=== PATIENT | female | born 1940 | race American Indian/Alaskan Native ===

== ENCOUNTER 2017-08-17 10:50 | Outpatient (CLI) | payer MEDICARE ==
--- NOTE | 2017-08-17 12:14 | Mammography Report ---
Screening mammogram: Routine views demonstrates asymmetric decrease in size of the left breast with prior surgical history. The fibroglandular pattern is heterogeneously dense and generally symmetric distribution. Benign-appearing bilateral vascular calcifications are present. No focal masses no architectural distortion. Compared to prior examination 2012 increased vascular calcification with no other significant change. CAD views. Impression: Relatively stable examination with no suspicious findings. Recommendation: Annual mammogram followup. BI-RADS CATEGORY: 1 = Negative ACR BI-RADS MAMMOGRAPHIC CODES: 0 = Needs additional imaging evaluation; 1 = Negative; 2 = Benign; 3 = Probably benign; 4 = Suspicious; 5 = Malignant; 6 = Known biopsy-proven malignancy COMMENT: 1. Dense breast tissue, i.e., adenosis, fibrocystic changes, etc., may obscure an underlying neoplasm. 2. Approximately 10% of cancers are not detected with mammography. 3. A negative mammography report should not delay biopsy if a clinically suspicious mass is present.
== END 2017-08-17 10:51 | disposition home or self-care (01) ==
LOC: MAMMO 10:50
PROVIDERS: ATTEND Internal Medicine Hematology & Oncology
DX: Z12.31 Encounter for screening mammogram for malignant neoplasm of breast (principal); E11.9 Type 2 diabetes mellitus without complications; I10 Essential (primary) hypertension; J44.9 Chronic obstructive pulmonary disease, unspecified; F41.9 Anxiety disorder, unspecified; D64.9 Anemia, unspecified; F32.9 Major depressive disorder, single episode, unspecified; F17.200 Nicotine dependence, unspecified, uncomplicated; F12.10 Cannabis abuse, uncomplicated
CPT/HCPCS: 77067; G0202

== ENCOUNTER 2017-10-21 13:11 | Day surgery (SDC) | payer MEDICARE ==
[~2017-10-21 13:11] MED LIST: LEVAQUIN 500MG/100ML 500 MG/100 ML BAG IV NR
[2017-10-21] MEDS ORDERED: NACL ONE (13:13)
[2017-10-21] MEDS ORDERED: BOTOX ONE (13:16)
--- NOTE | 2017-10-21 13:44 | Anesthesia Consultation ---
Anesthesia Consult and Med Hx Date of service: 10/21/17 - Airway Anesthetic Teeth Evaluation: Dentures ROM Head & Neck: Adequate Mental/Hyoid Distance: Adequate Mallampati Class: Class III Intubation Access Assessment: Possibly Difficult - Pulmonary Exam CTA: Yes (COPD, former smoker) - Pre-Operative Health Status ASA Pre-Surgery Classification: ASA3 Proposed Anesthetic Plan: General - Pulmonary Hx Smoking: Yes (1/3 PPD X 50 YRS) Hx Respiratory Symptoms: Yes (sarcoidosis) SOB: Yes (SOB WITH ACTIVITY) COPD: Yes (INHALER /NEBULIZER PRN) Hx Sleep Apnea: No (RONAN PRE SCREEN HIGH RISK) - Cardiovascular System Hx Hypertension: Yes (X 50 YRS) Hx Cardia Arrhythmia: Yes ("skipped beats") Hx Heart Murmur: Yes - Central Nervous System Hx Seizures: No 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
--- NOTE | 2017-10-21 13:45 | Anesthesia Day of Surgery ---
Anesthesia Day of Surgery - Day of Surgery Patient Examined: Yes Patient H&P Reviewed: Yes Patient is NPO: Yes
[2017-10-21 13:55] LABS: Hematocrit 39.5 % (30.3-42.9); Hemoglobin 13.1 gm/dl (10.1-14.3); Mean Corpuscular HGB Conc 33 % (30-34); Mean Corpuscular Hemoglobin 27 pg (28-32); Mean Corpuscular Volume 81 fl (79-97); Platelet Count 136 K/mm3 (140-440); Red Blood Count 4.89 M/mm3 (3.65-5.03); Red Cell Distribution Width 16.3 % (13.2-15.2)
[2017-10-21] MEDS ORDERED: DIPRIVAN 10 MG/ML IV ONE (14:39)
[2017-10-21] MEDS ORDERED: ePHEDrine SULFATE ONE (14:49)
[2017-10-21] MEDS ORDERED: XYLOCAINE MPF 2% ONE (14:50)
--- NOTE | 2017-10-21 14:53 | Post Operative Note ---
Date of procedure: 10/21/17 Pre-op diagnosis: overactive neurogenic bladder Post-op diagnosis: same Findings: as above Procedure: cysto botox Anesthesia: GETA Surgeon: NICOLA CUEVAS Estimated blood loss: minimal Pathology: none Condition: stable Disposition: PACU
--- NOTE | 2017-10-21 14:54 | Discharge Summary ---
Short Stay Discharge Plan Activity: other (no straining ) Weight Bearing Status: Full Weight Bearing Diet: low cholesterol, low salt Durable Medical Equipment Needed Upon Discharge: other (reeves ) Follow up with: NADEEM CARLTON MD [Primary Care Provider] - 7 Days NICOLA CUEVAS MD [Staff Physician] - 10/23/17
[2017-10-21] MEDS ORDERED: NACL 0.9% 1000 ML 1,000 ML IV SCH (15:00)
[2017-10-21] MEDS ORDERED: WATER FOR IRRIG STERILE IR ONE ×3 (15:05)
[2017-10-21] MEDS ORDERED: BOTOX ID ONE (15:05)
[2017-10-21] MEDS ORDERED: NACL 0.9% IV ONE (15:05)
[2017-10-21] MEDS ORDERED: SUBLIMAZE ONE (15:12)
[2017-10-21 15:22] LABS: Basophils % (Manual) 0 % (0.0-1.8); Eosinophils % (Manual) 0 % (0.0-4.3); Total Cells Counted 100
[2017-10-21] MEDS ORDERED: LASIX ONE (15:22)
[2017-10-21] MEDS ORDERED: ZOFRAN ONE (15:23)
[2017-10-21 15:27] LABS: Anisocytosis 1+; Platelet Estimate Consistent w Auto; Smudge Cells Few
[2017-10-21 17:23] VITALS: BP 143/60
--- NOTE | 2017-10-21 18:38 | Operative Report ---
PREOPERATIVE DIAGNOSIS: Severe overactive bladder. POSTOPERATIVE DIAGNOSES: Severe overactive bladder with evidence of a stitch on the right side of the bladder, which is a new finding. PROCEDURE: Cystoscopy, Botox injection, excision of the stitch, right-sided bladder fulguration. SURGEON: Tucker Engle M.D. ANESTHESIA: General. FINDINGS: This is a woman with severe overactive bladder. She has had previous cystoscopy and Botox injection, which worked for a while. She has had previous pelvic surgery years ago, now presents with recurrent symptoms, which are much worse than initially. DESCRIPTION OF PROCEDURE: The patient was brought to the operating room and placed on the operating table. Following induction of anesthesia, placed in lithotomy position, prepped and draped in usual sterile fashion. Orifices and trigone were normal. Botox injections were done as we discussed preoperatively. She has had a previous mini stroke as well. There were no complications. Upon inspection, there was a little oozing from the right side of the bladder that looked like there was a little pocket. Once we pushed on that side, a stitch popped out through almost like a little diverticulum. It looks like there was a little tiny stone around it. This was hidden in a pocket, which we were carlotta to see because we pushed on it and it popped out. We used the cystoscopic scissor and removed it, flushed with the floor of the diverticulum. The patient tolerated the procedure well. Hopefully, ____ retract, we cut it all the way, flushed, the area was a little bit inflamed, so we cauterized it. She was brought to recovery room with a 22-Sinhala Antoine draining minimally tinged urine, in stable condition. JOB# [id number] ALICE/PABLITO
== END 2017-10-21 17:18 | disposition home or self-care (01) ==
LOC: OR 13:11
PROVIDERS: ATTEND Urology
DX: N32.81 Overactive bladder (principal); I10 Essential (primary) hypertension; I69.998 Other sequelae following unspecified cerebrovascular disease; H54.61 Unqualified visual loss, right eye, normal vision left eye; C95.90 Leukemia, unspecified not having achieved remission; K21.9 Gastro-esophageal reflux disease without esophagitis; Z88.5 Allergy status to narcotic agent; Z79.899 Other long term (current) drug therapy; J44.9 Chronic obstructive pulmonary disease, unspecified; Z87.891 Personal history of nicotine dependence; Z86.73 Personal history of transient ischemic attack (TIA), and cerebral infarction without residual deficits
CPT/HCPCS: 36415; 52214; 52287; 82962; 85007; 85025; 88302; A4217; J0585; J1940; J1956; J2405; J2704; J3010; J7030

== ENCOUNTER 2017-12-05 13:34 | Emergency (ER) | payer MEDICARE ==
[2017-12-05] MEDS ORDERED: TYLENOL PO STA (14:00)
[2017-12-05] MEDS ORDERED: NACL 0.9% 500 ML 500 ML IV ONE (14:00)
[2017-12-05 14:54] LABS: Hematocrit 43.7 % (30.3-42.9); Hemoglobin 14.5 gm/dl (10.1-14.3); Mean Corpuscular HGB Conc 33 % (30-34); Mean Corpuscular Hemoglobin 26 pg (28-32); Mean Corpuscular Volume 80 fl (79-97); Platelet Count 131 K/mm3 (140-440); Red Blood Count 5.49 M/mm3 (3.65-5.03); Red Cell Distribution Width 17.4 % (13.2-15.2)
[2017-12-05 15:04] LABS: INR 0.92 (0.87-1.13)
[2017-12-05 15:16] LABS: Alanine Aminotransferase 8 units/L (7-56); Albumin 3.4 g/dL (3.9-5); BUN/Creatinine Ratio 23; Blood Urea Nitrogen 16 mg/dL (7-17); Calcium 8.9 mg/dL (8.4-10.2); Hemolysis Index 0
--- NOTE | 2017-12-05 15:52 | Emergency Department Report ---
ED Shortness of Breath HPI - General Chief Complaint: Dyspnea/Respdistress Stated Complaint: FLU LIKE SYMPTOMS Time Seen by Provider: 12/05/17 15:48 Source: patient, family Mode of arrival: Wheelchair Limitations: No Limitations - History of Present Illness MD Complaint: shortness of breath, cough -: days(s) (4) Severity: mild Pain Scale: 3 Improves With: nothing Worsens With: lying flat, coughing Known History Of: COPD Associated Symptoms: fever, nausea/vomiting Treatments Prior to Arrival: none - Related Data Home Medications Medication Instructions Recorded Confirmed Last Taken LORazepam [Ativan] 0.5 mg PO QHS 08/28/16 12/05/17 10/20/17 amLODIPine [Norvasc] 10 mg PO DAILY 08/28/16 12/05/17 10/21/17 Brimonidine Tartrate/Timolol 1 drop OP BID 10/07/17 12/05/17 10/21/17 [Combigan 0.2%-0.5% Eye Drops] Ipratropium/Albuterol Sulfate 1 ampul IH PRN PRN 10/07/17 12/05/17 10/21/17 [DUONEB *Not for PRN Use*] Travoprost [Travatan Z] 1 ml OP DAILY 10/07/17 12/05/17 10/21/17 Previous Rx's Medication Instructions Recorded Last Taken Type Aspirin [Aspirin TAB] 325 mg PO QDAY tablet 12/26/15 10/14/17 Rx Prednisone [predniSONE (Servando) ER 10 mg PO QDAY #20 tablet. 12/26/15 10/21/17 Rx TAB] Ondansetron [Zofran Odt] 4 mg PO Q8H PRN #10 tab.rapdis 08/28/16 10/20/17 Rx Sulfamethoxazole/Trimethoprim 1 each PO BID #10 tablet 12/05/17 Unknown Rx [Bactrim DS TAB] Allergies Allergy/AdvReac Type Severity Reaction Status Date / Time codeine Allergy Itching Verified 10/07/17 12:43 Penicillins AdvReac Itching Verified 10/07/17 12:43 ED Review of Systems ROS: Stated complaint: FLU LIKE SYMPTOMS Other details as noted in HPI Comment: All other systems reviewed and negative Constitutional: denies: chills, fever Eyes: denies: eye pain, eye discharge, vision change ENT: denies: ear pain, throat pain Respiratory: see HPI, cough, SOB with exertion. denies: shortness of breath, wheezing Cardiovascular: denies: chest pain, palpitations Endocrine: no symptoms reported Gastrointestinal: denies: abdominal pain, nausea, diarrhea Genitourinary: denies: urgency, dysuria, discharge Musculoskeletal: denies: back pain, joint swelling, arthralgia Skin: denies: rash, lesions Neurological: denies: headache, weakness, paresthesias Psychiatric: denies: anxiety, depression Hematological/Lymphatic: denies: easy bleeding, easy bruising ED Past Medical Hx - Past Medical History Previous Medical History?: Yes Hx Hypertension: Yes (X 50 YRS) Hx Diabetes: Yes (NO MEDS) Hx GERD: Yes Hx Liver Disease: Yes (LIVER MASS- "JUST WATCHING RIGHT NOW") Hx Sickle Cell Disease: No Hx Arthritis: Yes Hx Seizures: No Hx COPD: Yes (INHALER /NEBULIZER PRN) Hx HIV: No Additional medical history: heart murmur (sees Dr. Snyder), depression/anxiety , left breast cancer (remission), LGL, sarcoidosis, Anemia, dementia - Surgical History Past Surgical History?: Yes Hx Breast Surgery: Yes Additional Surgical History: Bladder surgery with instillation of Botox 2015 - Social History Smoking Status: Current Every Day Smoker Substance Use Type: None - Medications Home Medications: Home Medications Medication Instructions Recorded Confirmed Last Taken Type Aspirin [Aspirin TAB] 325 mg PO QDAY tablet 12/26/15 12/05/17 10/14/17 Rx Prednisone [predniSONE (Servando) ER 10 mg PO QDAY #20 tablet. 12/26/15 12/05/17 10/21/17 Rx TAB] LORazepam [Ativan] 0.5 mg PO QHS 08/28/16 12/05/17 10/20/17 History Ondansetron [Zofran Odt] 4 mg PO Q8H PRN #10 tab.rapdis 08/28/16 12/05/17 Rx amLODIPine [Norvasc] 10 mg PO DAILY 08/28/16 12/05/17 10/21/17 History Brimonidine Tartrate/Timolol 1 drop OP BID 10/07/17 12/05/17 10/21/17 History [Combigan 0.2%-0.5% Eye Drops] Ipratropium/Albuterol Sulfate 1 ampul IH PRN PRN 10/07/17 12/05/17 10/21/17 History [DUONEB *Not for PRN Use*] Travoprost [Travatan Z] 1 ml OP DAILY 10/07/17 12/05/17 10/21/17 History Sulfamethoxazole/Trimethoprim 1 each PO BID #10 tablet 12/05/17 Unknown Rx [Bactrim DS TAB] ED Physical Exam - General Limitations: No Limitations General appearance: alert, in no apparent distress - Head Head exam: Present: atraumatic, normocephalic - Eye Eye exam: Present: normal appearance - ENT ENT exam: Present: mucous membranes moist - Neck Neck exam: Present: normal inspection - Respiratory Respiratory exam: Present: normal lung sounds bilaterally. Absent: respiratory distress - Cardiovascular Cardiovascular Exam: Present: regular rate, normal rhythm. Absent: systolic murmur, diastolic murmur, rubs, gallop - GI/Abdominal GI/Abdominal exam: Present: soft, normal bowel sounds - Extremities Exam Extremities exam: Present: normal inspection - Back Exam Back exam: Present: normal inspection - Neurological Exam Neurological exam: Present: alert, oriented X3 - Psychiatric Psychiatric exam: Present: normal affect, normal mood - Skin Skin exam: Present: warm, dry, intact, normal color. Absent: rash ED Course Vital Signs 12/05/17 13:51 Temperature 101.3 F H Pulse Rate 124 H Respiratory 16 Rate Blood Pressure 156/85 - Reevaluation(s) Reevaluation #1: 12/05/17 17:25 Discussed with patient and family blood disorder. 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 12/05/17 17:26 ED Medical Decision Making - Lab Data Result diagrams: 12/05/17 14:44 12/05/17 14:44 - Radiology Data Radiology results: image reviewed (No acute process.) - Medical Decision Making Patient Dx: UTI. Instructed patient to follow up with her Oncologist on her Leukemia. Also instructed patient and her daughter to NOT randomly take the Prednisone when patient feels bad and to follow instructions of the prescriber. - Differential Diagnosis UTI; COPD Exas; LGL Exas. Critical care attestation.: If time is entered above; I have spent that time in minutes in the direct care of this critically ill patient, excluding procedure time. ED Disposition Clinical Impression: UTI (urinary tract infection), Large granular lymphocytic leukemia Disposition: TO HOME OR SELFCARE Is pt being admited?: No Does the pt Need Aspirin: No Condition: Stable Prescriptions: Sulfamethoxazole/Trimethoprim [Bactrim DS TAB] 1 each PO BID #10 tablet Referrals: PRIMARY CARE, [Primary Care Provider] - 3-5 Days Time of Disposition: 17:42
[2017-12-05 16:15] LABS: Bacteria,Urine 3+ /HPF (Negative); Bilirubin,Urine NEG (Negative); Blood,Urine NEG (Negative); Color,Urine Yellow (Yellow); Mucus,Urine FEW /HPF; Urobilinogen,Urine < 2.0 mg/dL (<2.0)
[2017-12-05 16:30] LABS: Anisocytosis 1+; Basophils % (Manual) 0 % (0.0-1.8); Eosinophils % (Manual) 0 % (0.0-4.3); Total Cells Counted 100
[2017-12-05 16:31] LABS: Platelet Estimate Consistent w Auto
[2017-12-05] MEDS ORDERED: MOTRIN PO ONE (16:52)
[2017-12-05] MEDS ORDERED: ROCEPHIN/NS 1 GM/50 ML 1 GM/50 ML BAG IV ONE (17:01)
--- NOTE | 2017-12-05 17:13 | XRay Report ---
FINAL REPORT EXAM: XR CHEST 1V AP HISTORY: possible Sepsis TECHNIQUE: upright single view chest PRIORS: None. FINDINGS: Cardiac and mediastinal contours are unremarkable. There is platelike atelectasis within the right lower lobe appears likely chronic. Noted are surgical clips in the left axilla. no pleural fluid collection seen. Pulmonary vasculature is unremarkable. IMPRESSION: Focal atelectasis or scarring in the right lower lobe No acute findings in the chest
[2017-12-05] MEDS ORDERED: cefTRIAXone 1 GM in NACL 0.9% 20 ML IV ONE (17:15)
[2017-12-05 19:05] VITALS: BP 153/67
== END 2017-12-05 18:46 | disposition home or self-care (01) ==
LOC: ED 13:34
DX: N39.0 Urinary tract infection, site not specified (principal); C91.Z0 Other lymphoid leukemia not having achieved remission; I10 Essential (primary) hypertension; E11.9 Type 2 diabetes mellitus without complications; M19.90 Unspecified osteoarthritis, unspecified site; K21.9 Gastro-esophageal reflux disease without esophagitis; F17.200 Nicotine dependence, unspecified, uncomplicated; Z88.6 Allergy status to analgesic agent; Z88.0 Allergy status to penicillin
CPT/HCPCS: 36415; 71045; 80053; 81001; 82140; 82805; 85007; 85025; 85610; 87040; 87086; 96361; 96374; 99284; J0696; J7040